=== PATIENT | female | born 1985 | race Caucasian/White ===

== ENCOUNTER 2018-09-09 16:55 | Inpatient (IN) | payer MEDICAID ==
[~2018-09-09] VITALS: Ht 162.6 cm; Wt 87.1 kg
[2018-09-09 17:07] VITALS: BP 145/78
== END 2018-09-09 19:35 | disposition home or self-care (01) | DRG 566 ==
LOC: EDSTATUS 17:28 → OBSVTOIN 17:30 → MLD 17:30
PROVIDERS: ADMIT Obstetrics & Gynecology; ATTEND Obstetrics & Gynecology
DX: O26.893 Other specified pregnancy related conditions, third trimester (principal); Z3A.28 28 weeks gestation of pregnancy
CPT/HCPCS: 81000; 99281